=== PATIENT | male | born 1960 | race Caucasian/White ===

== ENCOUNTER 2018-10-23 15:20 | Emergency (ER) | payer OTHER ==
[~2018-10-23] VITALS: Ht 170.2 cm; Wt 113.6 kg
[2018-10-23 15:20] VITALS: TEMP 99.9
[2018-10-23] MEDS ORDERED: ALTACE 10MG TAB10 MG PO (15:32)
[2018-10-23] MEDS ORDERED: CELEBREX 200MG200 MG PO (15:33)
[2018-10-23 17:36] LABS: ALANINE AMINOTRANSFERASE 28 U/L (21-72); ALBUMIN 4.3 gm/dL (3.5-5.0); ALKALINE PHOSPHATASE 72 U/L (50-136); ANION GAP 8 mmol/L (7-16); AST,SGOT 24 U/L (15-37); BILIRUBIN,TOTAL 0.5 mg/dL (0.0-1.0); BLOOD UREA NITROGEN 15 mg/dL (9-20); C-REACTIVE PROTEIN 2.3 mg/dL (0.0-0.9); CALCIUM 9.7 mg/dL (8.4-10.2); CARBON DIOXIDE 28 mmol/L (22-30); CHLORIDE 103 mmol/L (98-107); CREATININE, serum 0.92 mg/dL (0.66-1.25); GLUCOSE 107 mg/dL (74-106); LIPASE 80 U/L (23-300); SODIUM 140 mmol/L (137-145); TOTAL PROTEIN 7.7 gm/dL (6.4-8.2)
[2018-10-23 17:40] LABS: BASO # 0.1 (0.0-0.2); BASO % 0.8 % (0.0-2.0); EOS # 0.2 (0.0-0.7); EOS % 1.8 % (0-4.0); GRAN # 7.1 (1.4-6.5); GRAN % 73.3 % (42.2-75.2); HEMATOCRIT 39.6 % (42.0-52.0); HEMOGLOBIN 13.6 g/dl (13.5-18.0); LYMPH # 1.5 (1.2-3.4); LYMPH % 15.2 % (20.0-51.0); MEAN CELL VOLUME 89 fl (80.0-100.0); MEAN CORPUSCULAR HEMOGLOBIN 31 pg (27.0-31.0); MEAN CORPUSCULAR HGB CONC 34 g/dl (33.0-37.0); MEAN PLATELET VOLUME 10.9 fl (7.4-10.4); MONO # 0.8 (0.1-0.6); MONO % 8.6 % (1.7-9.3); PLATELET COUNT 211 K/mm3 (130-400); RED BLOOD COUNT 4.43 M/mm3 (4.20-5.60); REDCELL DISTRIBUTION WIDTH-CV 12.7 % (11.5-14.5)
[2018-10-23 17:53] LABS: TROPONIN-I < 0.012 ng/mL (0.000-0.034)
[2018-10-23] MEDS ORDERED: NORVASC 5MG5 MG/TAB PO (19:19)
[2018-10-23] MEDS ORDERED: FLEXERIL 1010 MG/TAB PO (19:19)
[2018-10-23 20:02] VITALS: BP 155/90; PULSE 82
== END 2018-10-23 20:02 | disposition home or self-care (01) ==
LOC: COL.ER 15:20
PROVIDERS: Emergency Medicine
DX: S20.219A Contusion of unspecified front wall of thorax, initial encounter (principal); I10 Essential (primary) hypertension; R07.89 Other chest pain; E66.9 Obesity, unspecified; Z68.39 Body mass index [BMI] 39.0-39.9, adult; V43.52XA Car driver injured in collision with other type car in traffic accident, initial encounter

== ENCOUNTER 2020-01-18 16:12 | Emergency (ER) | payer SELFPAY ==
[~2020-01-18] VITALS: Ht 170.2 cm; Wt 113.6 kg
[~2020-01-18 16:12] MED LIST: ALTACE 10MG TAB10 MG PO; CELEBREX 200MG200 MG PO; FLEXERIL 1010 MG/TAB PO; NORVASC 5MG5 MG/TAB PO
[2020-01-18 16:13] VITALS: TEMP 98.2
[2020-01-18 18:45] VITALS: BP 164/98; PULSE 69
== END 2020-01-18 19:20 | disposition home or self-care (01) ==
LOC: COL.ER 16:12
DX: S20.219A Contusion of unspecified front wall of thorax, initial encounter (principal); I10 Essential (primary) hypertension; V49.49XA Driver injured in collision with other motor vehicles in traffic accident, initial encounter